=== PATIENT | female | born 1985 | race Caucasian/White ===

== ENCOUNTER 2018-06-30 13:36 | Emergency (ER) | payer MEDICARE, OTHER ==
[~2018-06-30] VITALS: Ht 170.2 cm; Wt 70.3 kg
[2018-06-30 13:36] VITALS: BP_SYST 116
--- NOTE | 2018-06-30 13:36 | NUR ---
Pt placed in hallway with [employer] identification officer
--- NOTE | 2018-06-30 13:40 | NUR ---
ER Dr. Pardo at bedside examining patient.
[2018-06-30 13:47] VITALS: BP_SYST 116
--- NOTE | 2018-06-30 13:47 | NUR ---
Patient/LASD Normalizer given written and verbal discharge instructions and verbalizes understanding. ER MD discussed with patient the results and treatment provided. Patient in stable condition. No Rx given. Patient educated on pain management and to follow up with PMD. Pain Scale 6. Dr Pardo is aware and no medication was given in ER. Opportunity for questions provided and answered. Pt was taken out in handcuffs with LASNadine Normalizer in stable condition
== END 2018-06-30 13:47 ==
LOC: SED 13:36
DX: M54.9 Dorsalgia, unspecified (principal); R03.0 Elevated blood-pressure reading, without diagnosis of hypertension
CPT/HCPCS: 99283

== ENCOUNTER 2019-04-11 10:26 | Emergency (ER) | payer MEDICARE, MEDICAID ==
[~2019-04-11] VITALS: Ht 165.1 cm; Wt 81.6 kg
[2019-04-11 10:26] VITALS: BP_SYST 118
== END 2019-04-11 10:55 ==
LOC: SED 10:26
DX: Z04.1 Encounter for examination and observation following transport accident (principal); V43.92XA Unspecified car occupant injured in collision with other type car in traffic accident, initial encounter; Y93.89 Activity, other specified; Y92.411 Interstate highway as the place of occurrence of the external cause; Y99.8 Other external cause status
CPT/HCPCS: 99283